=== PATIENT | female | born 1985 | race Two or more races ===

== ENCOUNTER 2021-04-25 08:48 | Outpatient (REF) | payer OTHER, SELFPAY | END 2021-04-25 08:49 | disposition home or self-care (01) | LOC: HO.LAB 08:48 | PROVIDERS: Visit Provider Internal Medicine | DX: Z20.822 Contact with and (suspected) exposure to COVID-19 (principal) | CPT/HCPCS: C9803; U0003; U0005 ==

== ENCOUNTER 2025-01-19 12:35 | Emergency (ER) | payer OTHER, SELFPAY ==
--- NOTE | ~2025-01-19 | XR_ITS ---
EXAMINATION: XR CHEST 2 VIEWS HISTORY: cough COMPARISON: There are no prior studies for comparison. FINDINGS: PA and lateral views of the chest are submitted. The lungs are expanded and clear. There is no pleural effusion, pneumothorax, or pulmonary vascular congestion. The heart is normal in size. The bones are intact. XR/XR chest 2V IMPRESSION: Normal examination of the chest. Electronically signed by: Rafael Avalos MD 01/19/2025 01:46 PM EDT
[2025-01-19 12:40] VITALS: BP 140/86; PULSE 69; RESP 17; TEMP 36.6; O2SAT 98; BMI 39.1
--- NOTE | 2025-01-19 12:41 | ED.GENADULT ---
HPI - General Adult General Chief complaint: Upper Respiratory Symptoms Stated complaint: Cough Sore Throat Time Seen by Provider: 01/19/25 13:54 Source: patient Mode of arrival: ambulatory Limitations: no limitations History of Present Illness ED Provider: CYNTHIA CONTRERAS PA-C HPI narrative: 39-year-old female with no significant pmhx presents to the ED today for evaluation of headache, nasal congestion, sinus pain, cough, sore throat and fatigue x3 days. Admits her face feels tender. Reports her niece and nephew are sick at home. Is unsure if she caught something from them. Denies any fever, chills, sputum production, chest pain, shortness of breath, wheezing, rashes. Vaccinations up-to-date. Related Data Previous Rx's ?Medication ?Instructions ?Recorded amoxicillin 875 mg-potassium 1 tab PO BID 7 days #14 tabs 01/19/25 clavulanate 125 mg tablet benzocaine 15 mg-menthol 2.6 mg 1 jordana mucous membrane Q2-4H PRN 01/19/25 lozenges (Cepacol Sore Throat sore throat #16 ea (benzocaine-menthol)) benzonatate 100 mg capsule 100 mg PO BID PRN cough #20 caps 01/19/25 Allergies Allergy/AdvReac Type Severity Reaction Status Date / Time ibuprofen [Motrin] Allergy Unknown hives Verified 04/30/13 00:00 shellfish derived [shellfish] Allergy Swelling Verified 01/19/25 12:42 sulfamethoxazole Allergy Unknown Verified 01/19/25 12:42 [From Bactrim] trimethoprim [From Bactrim] Allergy Unknown Verified 01/19/25 12:42 Review of Systems Review of Systems: Yes all other systems are reviewed and are negative [facility] Past Medical History Attestation statement: The following information was validated with the patient. Source: old records reviewed and nursing notes reviewed Social History Social History Advance Directives: No Advance Directives Information Provided: Yes Do you have a plan to hurt others: No Plan Physical Exam ED Vital Signs: Vital Signs - 24 hr 01/19/25 12:40 01/19/25 13:55 01/19/25 14:02 Temperature 98 F 97.5 F 97.5 F Pulse Rate 69 60 60 Respiratory Rate 17 20 20 Blood Pressure 140/86 H 136/77 136/77 Pulse Oximetry 98 98 98 Oxygen Delivery Method Room Air Room Air Room Air BMI result Body Mass Index 39.1 Initially hypertensive, vitals are otherwise WNL General: Well appearing, in no acute distress. Skin: Warm, dry, intact. No rashes or lesions. Head: Normocephalic, atraumatic. EENT: Hearing is intact b/l. Conjunctiva clear. PERRLA. EOM intact. Moist mucous membranes.? Tender to percussion of both maxillary and frontal sinuses. Bilateral EACs and TMs WNL. Posterior oropharynx WNL. Controlling secretions. Neck: Supple without LAD Cardiac: Chest wall symmetric. RRR. Lungs: Normal respiratory effort without accessory muscle use. CTA bilaterally. Ext: Upper and lower extremities atraumatic, without tenderness, deformity, swelling or erythema Neuro: AOx3. Normal speech. Ambulating with steady gait. Course Course Course Narrative: This is a Rapid Medical Examination (RME) performed by Gagan Contreras PA-C in triage. Full HPI, ROS, assessment and treatment plan per primary provider in the Main ED. 01/19/25 1242 FABY Pisano Hx: 39 yo female here for eval of headache, nasal congestion, sinus pain, cough, sore throat, fatigue x3 days. PE/vitals: Tender to percussion over both maxillary and frontal sinuses. Well-appearing. Plan: viral/strep swabs, cxr. Reevaluation(s) Reevaluation #1: Negative COVID, flu, RSV, strep throat. Chest x-ray does not demonstrate any infiltrate or consolidation to suggest pneumonia. Her exam is consistent with sinusitis. Will trial a course of Augmentin. Cepacol throat lozenges sent to pharmacy for sore throat. Tessalon Perles sent to pharmacy for cough. Patient has remained stable throughout ED visit today. Discussed worrisome signs and symptoms and when to return to the ED. All questions answered at this time. Patient is agreeable with disposition and stable for discharge. Medical Decision Making Medical Decision Making MDM Narrative: 39-year-old female with no significant pmhx presents to the ED today for evaluation of headache, nasal congestion, sinus pain, cough, sore throat and fatigue x3 days. Initially hypertensive to 140/86, vitals otherwise WNL. Afebrile. She is well-appearing and in no acute distress. She is tender to percussion over both maxillary and frontal sinuses. Bilateral EACs and TMs are WNL. Posterior oropharynx WNL. Controlling secretions and speaking in complete sentences. No increased effort of breathing, lungs are CTA bilaterally. Differential diagnosis includes viral syndrome, strep throat, bronchitis, pneumonia, sinusitis. Unlikely PE, pleural effusion, mono, SCORER SINGLE, retropharyngeal abscess, epiglottitis. Plan for viral and strep swabs, chest x-ray Differential Diagnosis Differential Diagnoses: The differential diagnosis associated with the presentation includes As above Admission/Observation Not indicated Lab Data MDM Lab Attestation statement: I reviewed the patient's lab results. As above Labs: Lab Results 01/19/25 01/19/25 Range/Units 12:52 12:53 Influenza Type A (PCR) NEGATIVE (Negative) Influenza Type B (PCR) NEGATIVE (Negative) RSV RNA Qual (PCR) NEGATIVE (Negative) SARS-CoV-2 RNA (RT-PCR) NEGATIVE (Negative) S. pyogenes GrpA HERMES Negative (Negative) Independent Interpretation I performed an independent interpretation of an: Plain X-Ray Interpretation: Chest x-ray without infiltrate or consolidation Radiology Impression Discussion of test interpretation with radiology: I have reviewed the radiologist's reading. Radiologist Impression: Procedure(s): XR chest 2V Accession Number(s): [id number] cc: Physician,Unknown ; Cynthia Contreras~ EXAMINATION: XR CHEST 2 VIEWS HISTORY: cough COMPARISON: There are no prior studies for comparison. FINDINGS: PA and lateral views of the chest are submitted. The lungs are expanded and clear. There is no pleural effusion, pneumothorax, or pulmonary vascular congestion. The heart is normal in size. The bones are intact. XR/XR chest 2V IMPRESSION: Normal examination of the chest. Electronically signed by: Rafael Avalos MD 01/19/2025 01:46 PM EDT Prescription Management I considered prescription management with: Antibiotic (Augmentin) Social Determinants Patient?s care significantly limited by Social Determinants of Health including: Other Social Determinant of Health Critical Care Time Critical Care Time Critical Care Time: No Discharge Plan Discharge Clinical Impression: Sinusitis Patient Disposition: Home, Self-Care Instructions: Sinusitis (ED) Additional Instructions: You tested negative for COVID, flu, RSV, strep throat. Your chest x-ray does not demonstrate any pneumonia. Your exam is concerning with sinusitis (infection of your sinuses). I am sending Augmentin to your pharmacy for treatment. Take this twice daily as prescribed. Do not skip any doses or stop taking this early as this can cause infection to persist or worsen. On Augmentin, softer bowel movements are to be expected. Call your provider if you move your bowels more than 4 times a day, your bowel movements are almost all liquid, or you get a rash.? I am also sending Cepacol throat lozenges to your pharmacy for you to use as needed for sore throat. Tesbrooklynn Ruby have been sent to your pharmacy to help with cough. Follow up with PCP. Return with new or worsening symptoms. In the case of an emergency call 911. Prescriptions: New amoxicillin-pot clavulanate 875-125 mg tablet 1 tab PO BID 7 Days Qty: 14 0RF benzonatate 100 mg capsule 100 mg PO BID PRN (Reason: cough) Qty: 20 0RF Cepacol Sore Throat (josé-men) 15-2.6 mg lozenge 1 jordana mucous membrane Q2-4H PRN (Reason: sore throat) Qty: 16 0RF Referrals: Physician,Unknown J [Primary Care Provider] - Interventions: ED Discharge Assessment Last Done: 01/19/25 14:02 Discharge Date/Time: 01/19/25 14:03 Print Language: Tamazight
[2025-01-19 13:09] LABS: IDNOW Serial# 55D5AD1C; Strep A Nucleic Acid Negative (Negative)
[2025-01-19 13:43] LABS: Influenza A PCR NEGATIVE (Negative); Influenza B PCR NEGATIVE (Negative); Resp Syncy Virus RNA Qual PCR NEGATIVE (Negative); SARS COV2 PCR INHOUSE NEGATIVE (Negative)
[2025-01-19 13:55] VITALS: BP 136/77; PULSE 60; RESP 20; TEMP 36.4; O2SAT 98
[2025-01-19 14:02] VITALS: BP 136/77; PULSE 60; RESP 20; TEMP 36.4; O2SAT 98
--- OUTSIDE RECORDS SUMMARY | 2025-01-19 14:46 | XMS_ITS | Clinical Summary ---
Author Organization [facility] Address [address] [place] [address] Care Team Providers Care Diet Kitchen Cook Name Role Phone Unavailable Primary Care Provider Unavailabl e Allergies Active Allergy Reactions Criticality Noted Date Comments Nitrofurantoin 09/23/2024 Other Reaction(s): N/V Peanut (Diagnostic) Shortness of breath High 017 Shellfish Allergy Itching,Swelling 07/24/2024 Medications predniSONE (Deltasone) 2.5 MG tablet See Instructions, take 1 tablet daily. In times of stress (fever >101, nausea/vomiting, trauma). Please take 3 tablets (7.5mg) until symptoms resolve. If not able to tolerate PO, please go to ED to received IV steriods, # 60 tablet, 6 Refills, Kerri... 07/06/20 23 Active azaTHIOprine (Imuran) 50 MG tablet TAKE 3 TABLETS BY MOUTH DAILY WITH FOOD 03/07/20 24 Active levothyroxine (Synthroid, Levoxyl) 75 MCG tablet Take 75 mcg by mouth. 05/12/20 24 Active omeprazole (PriLOSEC) [address] capsule Take 20 mg by mouth 2 times daily. 01/01/20 24 Active Hydrocortisone Sod Suc, PF, (Solu-CORTEF) 100 MG reconstituted solution 10/12/19 24 Active ferrous sulfate 325 (65 Fe) MG EC tablet TAKE 1 TABLET EVERY OTHER DAILY. START WITH 1 TABLET THEN INCREASE TO 1 TABLET THREE TIMES DAILY TOLERATED. TAKE WITH VITAMIN CAPSULE 09/14/20 23 Active acetaminophen (Tylenol) 325 MG tablet TAKE 2 TABLET BY MOUTH EVERY 6 HOURS NEEDED FOR PAIN 09/26/20 23 Active Ventolin HFA 108 (90 Base) MCG/ACT inhaler 2, puffs, Inhalation, Every 4 hours, PRN, # 8.5 Gm, Refills 5, Maintenance, 07/09/23 9:26:00 EDT, Route to Pharmacy Electronically, [id number], [id number], 154.94, cm, 07/09/23 9:12:00 EDT, Height, 116.1, kg,... 07/09/20 23 Active azithromycin (Zithromax) 250 MG tablet TAKE 2 TABLETS BY MOUTH TODAY THEN 1 TABLET DAILY X 4 DAYS 08/22/20 24 Active cetirizine (ZyrTEC) 10 MG tablet Take 10 mg by mouth. 10/25/19 23 Active EPINEPHrine (EpiPen 2-Seth) 0.3 MG/0.3ML injection syringe See Instructions, Intramuscular Once, then call ambulance, # 1 each, 0 Refills, Maintenance, 07/23/20 9:25:00 AM EDT, [id number], 154.94, cm, 07/02/20 10:05:00 EDT, Height, 100, kg, 09/25/19 10:01:00 EST, Dry Weight 07/23/20 20 Active ferrous gluconate (Fergon) 324 (38 Fe) MG tablet Take 1 tablet by mouth every other day. 01/11/20 24 Active Active Problems Problem Noted Date Diagnosed Date Anxiety 09/23/2024 Severe obesity (BMI 35.0-39.9) with comorbidity 09/23/2024 Chronic pain of right knee 09/23/2024 Autoimmune hepatitis 07/09/2024 Carpal tunnel syndrome 07/09/2024 Graves' disease 07/09/2024 Restless leg syndrome 07/09/2024 Anemia 07/09/2024 Chronic insomnia 07/09/2024 Depression 07/09/2024 Obstructive sleep apnea syndrome 07/09/2024 Pre-diabetes 07/09/2024 Severe obesity 07/09/2024 Tubal ligation status 07/09/2024 Tubular adenoma of colon 07/09/2024 Asthma 01/09/2014 Mixed anxiety and depressive disorder 01/09/2014 Mild dysplasia of cervix 01/30/2013 Encounters Date Type Department Care Team Description 01/14/2025 11:00 AM EDT Office Visit [facility] [address] [place], [place] [id number] Kalli, Harmanpreet 12/04/2024 8:00 AM EST Office Visit [facility] [address] [place] [address] Kalli, Yanickanpreet 11/20/2024 10:45 AM EST Office Visit [facility] [address] [place] [address] Kalli, Harmanpreet 11/04/2024 1:00 PM EST Office Visit [facility] [address] [place] [address] Kalli, Harmanpreet 10/29/2024 9:30 AM EST Office Visit [facility] [address] [place] [address] Kalli, Yanickanpreet 10/28/2024 Telephone [facility] [address] [place] [address] Kalli, Yanickanpreet 10/21/2024 9:30 AM EST Office Visit [facility] [address] [place] [address] Mahan, Yanickanpreet from Last 3 Months Social History Tobacco Use Types Packs/Day Years Used Date Smoking Tobacco: Never Smokeless Tobacco: Never Tobacco Cessation:Counseling Given: Not Answered Comments Unknown Sex and Gender Information Value Date Recorded Sex Assigned at Female 08/07/2022 10:25 AM EDT Legal Sex Female 10:25 AM EDT Gender Identity Female 08/07/2022 10:25 AM EDT Sexual Orientation Straight 08/07/2022 10 :25 AM EDT Last Filed Vital Signs Vital Sign Reading Time Taken Comments Blood Pressure 120/80 12/04/2024 8:04 AM EST Pulse 66 09/24/2024 11:19 AM EST Temperature - - Respiratory Rate - - Oxygen Saturation - - Inhaled Oxygen Concentration - - Weight - - Height - - Body Mass Index - - Plan of Treatment Upcoming Encounters Date Type Department Care Team (Late st Contact Info) Description 01/22/2025 9:00 AM EDT Office Visit [facility] [address] [place] [address] Kalli, Yanickanpreet [address] [place] [address] 01/23/2025 9:00 AM EDT Office Visit [facility] [address] [place] [address] Chio Warner Health Maintenance Due Date Last Done Comments Depression Screening 1986 HIV Screening 1986 Lipid Panel 1986 SDOH Screening 1986 Alcohol/Substance Use Screening 1998 Family Planning (PISQ) 2001 Hepatitis C Screening 2004 Hepatitis A Vaccines (1 of 2 - Risk 2-dose series) 2005 Hepatitis B Vaccines (1 of 3 - 19+ 3-dose series) 2005 Zoster Vaccines (1 of 2) 2005 Pap Smear 2007 HPV Vaccines (2 - 3-dose series) 04/21/2011 03/24/2011 Pneumococcal Vaccine: Pediatrics (0 to 5 Years) and At-Risk Patients (6 to 49) Years) (2 of 2 - PCV) 10/29/2016 10/29/2015 Cervical Cancer Screening 2016 HPV/Cotest 2016 COVID-19 Vaccine (3 - Pfizer risk series) 03/09/2021 02/09/2021, 01/19/2021 DTaP/Tdap/Td Vaccines (2 - Td or Tdap) 12/12/2023 12/11/2013 Influenza Vaccine (#1) 2024 12/11/2013 Dental Oral Exam 01/08/2025 07/09/2024, 05/2019, 06/06/2018, Additional history exists Dental Prophylaxis 01/23/2025 07/24/2024, 1 , 01/03/2019, Additional history exists Tobacco Screening 01/14/2026 01/14/2025 Dental X-Ray: Bitewings 01/15/2026 01/15/20 25, 10/29/2024, 09/24/2024, Additional history exists Dental X-Ray: Full Mouth 07/10/2027 07/09/2024, 10/09 RSV Patients and Patients Aged 60 years or older (1 - 1-dose 75+ series) 2061 HIB Vaccines Aged Out No longer eligi ble based on patient's age to complete this topic IPV Vaccines Aged Out No longer eligi ble based on patient's age to complete this topic Meningococcal Vaccine Aged Out No josé manuel elver eligible based on patient's age to complete this topic RSV under 20 months Aged Out No longe r eligible based on patient's age to complete this topic Rotavirus Vaccines Aged Out No longer eligible based on patient's age to complete this topic Procedures Procedure Name Priority Date/Time Associated Diagnosis Comments CASE PRESENTATION, DETAILED AND EXTENSIVE TREATMENT PLANNING Routine 01/14/2025 11:00 AM EDT INTRAORAL - PERIAPICAL FIRST RADIOGRAPHIC IMAGE Routine 01/14/2025 11:00 AM EDT BITEWING - SINGLE RADIOGRAPHIC IMAGE Routine 01/14/2025 11:00 AM EDT 30 LIMITED ORAL EVALUATION - PROBLEM FOCUSED Routine 01/14/2025 11:00 AM EDT CASE PRESENTATION, DETAILED AND EXTENSIVE TREATMENT PLANNING Routine 12/04/2024 8:00 AM EST 28 MO RESIN-BASED COMPOSITE - 2 SURF, POSTERIOR Routine 12/04/2024 8:00 AM EST 8 MFL RESIN-BASED COMPOSITE - 3 SURF, ANTERIOR Routine 12/04/2024 8:00 AM EST CASE PRESENTATION, DETAILED AND EXTENSIVE TREATMENT PLANNING Routine 11/20/2024 10:45 AM EST 4 CROWN - PORCELAIN/CERAMIC Routine 11/20/2024 10:45 AM EST CASE PRESENTATION, DETAILED AND EXTENSIVE TREATMENT PLANNING Routine 11/04/2024 1:00 PM EST 4 CROWN PREP Routine 11/04/2024 1:00 PM EST CASE PRESENTATION, DETAILED AND EXTENSIVE TREATMENT PLANNING Routine 10/29/2024 9:30 AM EST BITEWING - SINGLE RADIOGRAPHIC IMAGE Routine 10/29/2024 9:30 AM EST INTRAORAL - PERIAPICAL FIRST RADIOGRAPHIC IMAGE Routine 10/29/2024 9:30 AM EST LIMITED ORAL EVALUATION - PROBLEM FOCUSED Routine 10/29/2024 9:30 AM EST CASE PRESENTATION, DETAILED AND EXTENSIVE TREATMENT PLANNING Routine 10/21/2024 9:30 AM EST 9 L(V) RESIN-BASED COMPOSITE - 1 SURF, ANTERIOR Routine 10/21/2024 9:30 AM EST 4 CORE BUILDUP, INCL ANY PINS WHEN REQ Routine 10/21/2024 9:30 AM EST Full PROPHYLAXIS - ADULT Routine 024 2:00 PM EDT INTRAORAL - COMPLETE SERIES OF RADIOGRAPHIC IMAGES Routine 07/09/2024 9:30 AM EDT PERIODIC ORAL EVALUATION - ESTABLISHED PATIENT Routine 07/09/2024 9:30 AM EDT from Last 3 Months or Most Recently Relevant to Health Maintenance [facility]
--- OUTSIDE RECORDS SUMMARY | 2025-01-19 14:46 | XMS_ITS | Encounter Summary ---
Author Organization [facility] Address [address] [place] [address] Care Team Providers Care Instructor Dancing Name Role Phone Unavailable Primary Care Provider Unavailabl e Encounter Details Date Type Department Care Team (Latest Contact Info) Description 01/03/[address] [facility] CONVERSIONS Dental, Provider, DDS Social History Tobacco Use Types Packs/Day Years Used Date Smoking Tobacco: Never Assessed Comments Unknown Sex and Gender Information Value Date Recorded Sex Assigned at Female 08/07/2022 10:25 AM EDT Legal Sex Female 10:25 AM EDT Gender Identity Female 08/07/2022 10:25 AM EDT Sexual Orientation Straight 08/07/2022 10 :25 AM EDT documented as of this encounter Plan of Treatment Upcoming Encounters Date Type Department Care Team (Late st Contact Info) Description 01/22/2025 9:00 AM EDT Office Visit [facility] [address] [place] [address] Robbin Mahanet [address] [place] [address] 01/23/2025 9:00 AM EDT Office Visit [facility] [address] [place] [address] Chio Warner documented as of this encounter Visit Diagnoses Not on filedocumented in this encounter
--- OUTSIDE RECORDS SUMMARY | 2025-01-19 14:46 | XMS_ITS | Encounter Summary ---
Author Organization [employer] Address [address] [place] [address] Care Team Providers Care Mess Cook Name Role Phone Unavailable Primary Care Provider Unavailabl e Reason for Visit * Reason Comments Dental Exam Lower right molar ch ipped Encounter Details Date Type Department Care Team (Late st Contact Info) Description 01/14/2025 11:00 AM EDT Office Visit [facility] [address] [place] [address] Evelyn Mahan [address] [place] [address] Social History Tobacco Use Types Packs/Day Years Used Date Smoking Tobacco: Never Smokeless Tobacco: Never Comments Unknown Sex and Gender Information Value Date Recorded Sex Assigned at Female 08/07/2022 10:25 AM EDT Legal Sex Female 10:25 AM EDT Gender Identity Female 08/07/2022 10:25 AM EDT Sexual Orientation Straight 08/07/2022 10 :25 AM EDT documented as of this encounter Progress Notes * Evelyn Mahan - 01/14/2025 11:00 AM EDT Images from the original note were not included. Dental procedures in this visit D0140 - LIMITED ORAL EVALUATION - PROBLEM FOCUSED 30 (Completed) Service provider: Evelyn Mahan Billing provider: Evelyn Mahan [id number] - BITEWING - SINGLE RADIOGRAPHIC IMAGE (Completed) Service provider: Evelyn Mahan Billing provider: Evelyn Mahan [id number] - INTRAORAL - PERIAPICAL FIRST RADIOGRAPHIC IMAGE (Completed) Service provider: Evelyn Mahan Billing provider: Evelyn Mahan [id number] - CASE PRESENTATION, DETAILED AND EXTENSIVE TREATMENT PLANNING (Completed) Service provider: Evelyn Mahan Billing provider: Evelyn Mahan Patient ID: Prabha Vergara is a 39 y.o. female. Time Out: Timeout Date: 01/14/25 (limited exam), Timeout Time: 112 Location: [facility] Tooth: #30 Procedure: Exam and X-rays Verified the above with patient, assistant scientist, and provider. Confirmed via patient's chart, intraorally and by radiographs. Buffer Automatic: not applicable Chief Complaint Patient presents with Dental Exam Lower right molar chipped Medical Hx: Vitals: There were no vitals taken for this visit. Past Medical History: Diagnosis Date Anemia Asthma Autoimmune hepatitis (CMS/HCC) Graves disease Hypothyroid Medications: Outpatient Encounter Medications as of 01/14/2025 Medication Sig Dispense Refill acetaminophen (Tylenol) 325 MG tablet TAKE 2 TABLET BY MOUTH EVERY 6 HOURS NEEDED FOR PAIN (Patient not taking: Reported on 10/21/2024) azaTHIOprine (Imuran) 50 MG tablet TAKE 3 TABLETS BY MOUTH DAILY WITH FOOD (Patient not taking: Reported on 10/21/2024) azithromycin (Zithromax) 250 MG tablet TAKE 2 TABLETS BY MOUTH TODAY THEN 1 TABLET DAILY X 4 DAYS (Patient not taking: Reported on 10/21/2024) cetirizine (ZyrTEC) 10 MG tablet Take 10 mg by mouth. (Patient not taking: Reported on 10/21/2024) EPINEPHrine (EpiPen 2-Seth) 0.3 MG/0.3ML injection syringe See Instructions, Intramuscular Once, then call ambulance, # 1 each, 0 Refills, Maintenance, 07/23/20 9:25:00 AM EDT, [id number], 154.94, cm, 07/02/20 10:05:00 EDT, Height, 100, kg, 09/25/19 10:01:00 EST, Dry Weight (Patientnot taking: Reported on 10/21/2024) ferrous gluconate (Fergon) 324 (38 Fe) MG tablet Take 1 tablet by mouth every other day. (Patient not taking: Reported on 10/21/2024) ferrous sulfate 325 (65 Fe) MG EC tablet TAKE 1 TABLET EVERY OTHER DAILY. START WITH 1 TABLET THEN INCREASE TO 1 TABLET THREE TIMES DAILY TOLERATED. TAKE WITH VITAMIN CAPSULE (Patient not taking: Reported on 10/21/2024) Hydrocortisone Sod Suc, PF, (Solu-CORTEF) 100 MG reconstituted solution levothyroxine (Synthroid, Levoxyl) 75 MCG tablet Take 75 mcg by mouth. omeprazole (PriLOSEC) [address] capsule Take 20 mg by mouth 2 times daily. predniSONE (Deltasone) 2.5 MG tablet See Instructions, take 1 tablet daily. In times of stress (fever >101, nausea/vomiting, trauma). Please take 3 tablets (7.5mg) until symptoms resolve. If not able to tolerate PO, please go to ED to received IV steriods, # 60 tablet, 6 Refills, Kerri... Ventolin HFA 108 (90 Base) MCG/ACT inhaler 2, puffs, Inhalation, Every 4 hours, PRN, # 8.5 Gm, Refills 5, Maintenance, 07/09/23 9:26:00 EDT, Route to Pharmacy Electronically, [id number], [facility] #[id number], 154.94, cm, 07/09/23 9:12:00 EDT, Height, 116.1, kg,... No facility-administered encounter medications on file as of 01/14/2025. 39 y/o female presents for a limited exam seen by Dr. Evelyn Mahan, [place]. Chief Complaint: My molar in lower right side broke a little over a week ago Medical History: Patient does not report any changes in health issues that could alter the Treatment Plan. Medical consult / medical clearance needed: None Allergies: Reviewed in EHR Medications: Reviewed in EHR Radiographs X-rays taken today: 1 PA and 1 BW taken today Discussion: -Pt stated that patient has no pain but sensitivity to sweet sometimes in area in question. -Upon exam, #30 fractured occluso-lingual cusp evident. 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 -Pt was recommended excavation of existing anabaptist and any recurrent decay and replacement withnew composite anabaptist followed by crown if tooth tooth remains asymptomatic. Pt was also informed that if tooth becomes symptomatic post-op, pt might need RCT/post/core/crown/extraction as needed. Pt was informed that course of treatment plan will be finalized after excavation of existing anabaptist and any recurrent decay. -Pt also had concerns with existing upper and lower removable partial dentures. Advised pt to bringthem in next appointment to evaluate and adjust if possible. -Pt was informed that pt might have to pay out of pocket for adjustment so need to contact javascript front end developer for any financial queries. -OHI reviewed. Emphasis was laid on maintaining good oral hygiene regimen at home along with regular visits to dentist. -Pt understood, was satisfied with our conversation and agreed with tx plan; dismissed in good condition. -All questions answered. Soft tissue exam: WNL; OCS- negative Head and neck exam: Lymph Nodes, Lips, Palate, Buccal Mucosa, Floor of Mouth, Tongue, Tonsils, Alveolar Ridges, Oropharynx, Salivary Ducts, Vestibules - no abnormal findings. TMJ/Occlusal - TMJ is within normal limits. Oral Cancer Risk - low Oral Hygiene Instruction Provided - Yes Oral Hygiene Instructions: [place] two times daily, modified gonsalez technique, Floss daily, Electric toothbrush, Soft bristle toothbrush, [place] Tongue. Referrals - None Treatment plan: -Restorative #30 MOBL - excavation of existing defective anabaptist and any recurrent decay NV: restorative Adult Family Home Program Manager: Afia Harry Dentist: Dr. Evelyn Mahan, DMD documented in this encounter Plan of Treatment Upcoming Encounters Date Type Department Care Team ([facility] st Contact Info) Description 01/22/2025 9:00 AM EDT Office Visit [facility] [address] [place] [address] Evelyn Mahan [address] [place] [address] 01/23/2025 9:00 AM EDT Office Visit [facility] [address] [place] [address] Chio Warner Scheduled Orders Name Type Priority Associated Diagnoses Orde r Schedule ADJUST PARTIAL DENTURE - MANDIBULAR Dental Routine [address] arting 01/14/2025 ADJUST PARTIAL DENTURE - MANDIBULAR Dental Routine [address] arting 01/14/2025 30 MODL 30 MODL RESIN-BASED COMPOSITE - 4+ SURF, POSTERIOR Dental Routine 1 Occurrences starting 01/14/2025 3 MO 3 MO RESIN-BASED COMPOSITE - 2 SURF, POSTERIOR Dental Routine [address] arting 01/14/2025 CASE PRESENTATION, DETAILED AND EXTENSIVE TREATMENT PLANNING Dental Routine 1 Occurrences starting 01/14/2025 CASE PRESENTATION, DETAILED AND EXTENSIVE TREATMENT PLANNING Dental Routine 1 Occurrences starting 01/14/2025 30 30 CROWN - PORCELAIN/CERAMIC Dental Routine 1 Occurrences starting 01/14/2025 30 30 CROWN PREP Dental Routine 1 Occurr ences starting 01/14/2025 documented as of this encounter Procedures Procedure Name Priority Date/Time Associated Diagnosis Comments 30 LIMITED ORAL EVALUATION - PROBLEM FOCUSED Routine 01/14/2025 11:00 AM EDT INTRAORAL - PERIAPICAL FIRST RADIOGRAPHIC IMAGE Routine 01/14/2025 11:00 AM EDT CASE PRESENTATION, DETAILED AND EXTENSIVE TREATMENT PLANNING Routine 01/14/2025 11:00 AM EDT BITEWING - SINGLE RADIOGRAPHIC IMAGE Routine 01/14/2025 11:00 AM EDT documented in this encounter Visit Diagnoses Not on filedocumented in this encounter
--- OUTSIDE RECORDS SUMMARY | 2025-01-19 14:46 | XMS_ITS | Clinical Summary ---
Author Organization [facility] it Address [address] [place] [address] Care Team Providers Care Tire Fixer Name Role Phone Unavailable Primary Care Provider Unavailabl e Social History Tobacco Use Types Packs/Day Years Used Date Smoking Tobacco: Never Assessed Comments Unknown Sex and Gender Information Value Date Recorded Sex Assigned at Not on file Legal Sex Female 3:50 AM EST Gender Identity Not on file Sexual Orientation Not on file Plan of Treatment Health Maintenance Due Date Last Done Comments DTaP,Tdap,and Td Vaccines (1 - Tdap) 2005 Hepatitis B Vaccines (1 of 3 - 19+ 3-dose series) 2005 Cervical Cancer Screening: P ap Smear 2007 Depression Screening 09/10/2022 HIV Screening 09/10/2022 Hepatitis C Screening 09/10/2022 Social Influencers of Health Screening 09/10/2022 COVID-19 Vaccine (2023-2 5 season) 2024 Influenza Vaccine (Season Ended) 2025 HIB Vaccines Aged Out No longer eligi ble based on patient's age to complete this topic HPV Vaccines Aged Out No longer eligi ble based on patient's age to complete this topic Hepatitis A Vaccines Aged Out No long er eligible based on patient's age to complete this topic IPV Vaccines Aged Out No longer eligi ble based on patient's age to complete this topic MMR Vaccines Aged Out No longer eligi ble based on patient's age to complete this topic Meningococcal ACWY Vaccine Aged Out N o longer eligible based on patient's age to complete this topic Meningococcal B Vaccine Aged Out No l onger eligible based on patient's age to complete this topic Pneumococcal Vaccine: Pediat rics (0 to 5 Years) and At-Risk Patients (6 to 64 Years) Aged Out No longer eligible b ased on patient's age to complete this topic RSV Immunization Patients Un carly 20 months Aged Out No longer eligible b ased on patient's age to complete this topic Varicella Vaccines Aged Out No longer eligible based on patient's age to complete this topic
== END 2025-01-19 14:03 | disposition home or self-care (01) ==
PROVIDERS: Physician Assistant Medical; Emergency Provider Emergency Medicine
DX: J32.9 Chronic sinusitis, unspecified (principal); J02.9 Acute pharyngitis, unspecified; R05.9 Cough, unspecified; R51.9 Headache, unspecified; Z03.818 Encounter for observation for suspected exposure to other biological agents ruled out
CPT/HCPCS: 0241U; 71046; 87651; 99282; 99283

== ENCOUNTER → 2025-01-19 12:41 | Outpatient (BNV) | payer OTHER, SELFPAY | PROVIDERS: Emergency Provider Emergency Medicine; Visit Provider Radiology Diagnostic Radiology | DX: R05.9 Cough, unspecified (principal) | CPT/HCPCS: 71046 ==